=== PATIENT | male | born 1955 | race Caucasian/White ===

== ENCOUNTER 2025-05-01 10:50 | Inpatient (IN) | payer MEDICARE, OTHER ==
[2025-05-01 11:58] LABS: Basophils # (A) 0.01 10*3/uL (0.00-0.10); Basophils % (A) 0.1 %; Eosinophils # (A) 0.02 10*3/uL (0.04-0.35); Eosinophils % (A) 0.3 %; HCT 35.5 % (39.6-50.0); HGB 11.9 g/dL (13.0-17.0); Lymphocytes # (A) 0.85 10*3/uL (0.90-5.00); Lymphocytes % (A) 12.5 %; MCH 31.5 pg (27.0-32.0); MCHC 33.5 g/dL (32.0-37.0); MCV 93.9 fL (80.0-97.0); Monocytes # (A) 0.84 10*3/uL (0.20-1.00); Monocytes % (A) 12.3 %; Neutrophils # (A) 5.06 10*3/uL (1.80-7.70); Neutrophils % (A) 74.4 %; Platelet Count 272 10*3/uL (140-440); RBC 3.78 10*6/uL (4.40-5.60); RDW 14.8 % (11.5-14.5); WBC 6.81 10*3/uL (4.50-10.00)
[2025-05-01 12:03] LABS: ALT 25 U/L (4-49); African American GFR (CKD) >90 (>60 ml/min/1.73 sqM); Albumin 3.9 g/dL (3.5-5.0); Amylase 37 U/L (30-110); Anion Gap 13 mmol/L; Blood Urea Nitrogen 11 mg/dL (9-20); Calcium 9.1 mg/dL (8.4-10.2); Carbon Dioxide 23 mmol/L (22-30); Chloride 100 mmol/L (98-107); Glucose 102 mg/dL (74-99); Lipase 201 U/L (23-300); Non-African American GFR(CKD) >90 (>60 ml/min/1.73 sqM); Sodium 136 mmol/L (137-145); Total Protein 7.1 g/dL (6.3-8.2)
[2025-05-01 12:05] LABS: AST 30 U/L (17-59); Alkaline Phosphatase 70 U/L (38-126); Potassium 5.0 mmol/L (3.5-5.1)
--- NOTE | 2025-05-01 12:15 | ED ---
General Adult HPI - General Chief complaint: Abdominal Pain Stated complaint: Abd Pain Time Seen by Provider: 05/01/25 11:32 Source: patient, RN notes reviewed Mode of arrival: ambulatory Limitations: no limitations - History of Present Illness Initial comments: This is a 69-year-old male with a history of diverticulitis and diverticulosis, hypertension and hyperlipidemia presenting to the emergency department for complaints of left lower quadrant abdominal pain that has been worsening over the past 5 days. He states that the pain waxes and wanes and is associated after he eats food. He denies radiation of pain. He denies associated nausea, vomiting, diaphoresis, fevers, diarrhea. States he has been mildly constipated this week with his last bowel movement was this morning with no evidence of hematochezia or melena. Denies urinary complaints. Previous umbilical hernia repair. Patient is from out of town and vacations in the [place] in [place] and does not have a primary care provider in this area. - Related Data Home Medications Medication Instructions Recorded Confirmed Celecoxib [CeleBREX] 200 mg PO BID 05/01/25 05/01/25 Ergocalciferol [Vitamin D2 (1250 1,250 mcg PO DIRECTED 05/01/25 05/01/25 Mcg = 13028 Iu)] Irbesartan 300 mg PO HS 05/01/25 05/01/25 Pioglitazone [Actos] 15 mg PO DAILY 05/01/25 05/01/25 Semaglutide [Ozempic] 1 mg SQ DIRECTED 05/01/25 05/01/25 Simvastatin [Zocor] 20 mg PO DAILY 05/01/25 05/01/25 Allergies Allergy/AdvReac Type Severity Reaction Status Date / Time No Known Allergies Allergy Verified 05/01/25 15:34 Review of Systems ROS Statement: Those systems with pertinent positive or pertinent negative responses have been documented in the HPI. ROS Other: All systems not noted in ROS Statement are negative. Past Medical History Past Medical History: Hyperlipidemia, Hypertension Additional Past Medical History / Comment(s): Diverticulitis, "borderline diabet ic" Past Surgical History: Back Surgery, Hernia Repair, Joint Replacement Smoking Status: Never smoker Past Alcohol Use History: Abuse Past Drug Use History: None Reported General Exam Limitations: no limitations Neck exam: Present: normal inspection. Absent: tenderness, meningismus, lymphadenopathy Respiratory exam: Present: normal lung sounds bilaterally. Absent: respiratory distress, wheezes, rales, rhonchi, stridor Cardiovascular Exam: Present: regular rate, normal rhythm, normal heart sounds. Absent: systolic murmur, diastolic murmur, rubs, gallop, clicks GI/Abdominal exam: Present: soft, tenderness (LLQ). Absent: distended, guarding, rebound Extremities exam: Present: normal inspection, full ROM, normal capillary refill. Absent: tenderness, pedal edema, joint swelling, calf tenderness Back exam: Present: normal inspection. Absent: CVA tenderness (R), CVA tenderness (L) Course Vital Signs 05/01/25 05/01/25 05/01/25 11:00 12:00 14:30 Temperature 97.9 F Pulse Rate 69 65 66 Respiratory 18 18 16 Rate Blood Pressure 145/82 145/65 139/67 O2 Sat by Pulse 100 100 99 Oximetry Medical Decision Making - Medical Decision Making Was pt. sent in by a medical professional or institution (, PA, LEAVE SPECIALIST, urgent care, hospital, or alf...) When possible be specific @ -No Did you speak to anyone other than the patient for history (EMS, parent, family, police, friend...)? What history was obtained from this source @ -No Did you review nursing and triage notes (agree or disagree)? Why? @ -I reviewed and agree with nursing and triage notes Were old charts reviewed (outside hosp., previous admission, EMS record, old EKG, old radiological studies, urgent care reports/EKG's, alf records)? Report findings @ -No old charts were reviewed Differential Diagnosis (chest pain, altered mental status, abdominal pain women, abdominal pain men, vaginal bleeding, weakness, fever, dyspnea, syncope, headache, dizziness, GI bleed, back pain, seizure, CVA, palpatations, mental health, musculoskeletal)? @ -Differential Abdominal Pain Men: Appendicitis, cholecystitis, diverticulosis, ischemic bowel, pancreatitis, hepatitis, UTI, gastroenteritis, AAA, incarcerated hernia, bowel obstruction, constipation, inflammatory bowel, hepatitis, peptic ulcer disease, splenic infarction, perforated viscus, testicular torsion, this is not meant to be an all-inclusive list EKG interpreted by me (3pts min.). @ -None X-rays interpreted by me (1pt min.). @ -None done CT interpreted by me (1pt min.). @ -CT imaging of the abdomen pelvis with IV contrast reveals a complicated acute diverticulitis of the descending colon with adjacent 5.9 cm abscess within the left pericolic gutter abutting the abdominal wall with edema/stranding involving the left lateral abdominal wall subcutaneous tissue U/S interpreted by me (1pt. min.). @ -None done What testing was considered but not performed or refused? (CT, X-rays, U/S, labs)? Why? @ -None What meds were considered but not given or refused? Why? @ -None Did you discuss the management of the patient with other professionals (professionals i.e. Dr., PA, LEAVE SPECIALIST, lab, RT, psych nurse, social human services assistants, corporate traffic manager, teacher, regulatory compliance officer, geriatric case manager)? Give summary @ -I personally spoke with Dr. Gonzalez, on-call surgeon, who spoke with the patient and recommended admission. He recommend that the patient be n.p.o. and to continue on Flagyl and Rocephin and to consult interventional radiology. I spoke with Dr. park, who has agreed to admit the patient with general surgery and interventional radiology on consult. Was smoking cessation discussed for >3mins.? @ -No Was critical care preformed (if so, how long)? @ -No Were there social determinants of health that impacted care today? How? (Homelessness, low income, unemployed, alcoholism, drug addiction, transportation, low edu. Level, literacy, decrease access to med. care, fci, rehab)? @ -No Was there de-escalation of care discussed even if they declined (Discuss DNR or withdrawal of care, Hospice)? DNR status @ -No What co-morbidities impacted this encounter? (DM, HTN, Smoking, COPD, CAD, Cancer, CVA, ARF, Chemo, Hep., AIDS, mental health diagnosis, sleep apnea, morbid obesity)? @ -None Was patient admitted / discharged? Hospital course, mention meds given and route, prescriptions, significant lab abnormalities, going to OR and other pertinent info. @ -Admitted. 69-year-old male presenting to the emergency room complaints of left lower quadrant abdominal pain. Triage orders are placed before my ev aluation of the patient. On my evaluation patient's vitals are stable and he is resting comfortably in the examination bed in no signs of distress. Patient's pain is reproducible in the left lower quadrant. There are equal bowel sounds auscultated throughout all quadrants. He was offered pain medication however is declined. Laboratory testing reveals no signs of leukocytosis, lactic acid not elevated at 0.7. Urinalysis reveals no signs of infection. I was informed by the on-call radiologist with concern for a complicated acute diverticulitis of the descending colon with adjacent 5.9 cm abscess within the left pericolic gutter at 1:07 PM. General surgeon, Dr. Pearson, recommends that patient continue on antibiotics, be placed on n.p.o. status, and consult interventional radiology. Patient is admitted to Dr. Park. Case discussed with my attending Dr. Blake Undiagnosed new problem with uncertain prognosis? @ -No Drug Therapy requiring intensive monitoring for toxicity (Heparin, Nitro, Insulin, Cardizem)? @ -No Were any procedures done? @ -No Diagnosis/symptom? @ -Complicated diverticulitis with abscess Acute, or Chronic, or Acute on Chronic? @ -Acute Uncomplicated (without systemic symptoms) or Complicated (systemic symptoms)? @ -Complicated Side effects of treatment? @ -No Exacerbation, Progression, or Severe Exacerbation? @ -No Poses a threat to life or bodily function? How? (Chest pain, USA, VT, pneumonia, PE, COPD, DKA, ARF, appy, cholecystitis, CVA, Diverticulitis, Homicidal, Suicidal, threat to staff... and all critical care pts) @ -No - Lab Data Result diagrams: 05/01/25 11:13 05/01/25 11:13 Lab Results 05/01/25 05/01/25 05/01/25 Range/Units 11:13 11:13 12:13 WBC 6.81 (4.50-10.00) 10*3/uL RBC 3.78 L (4.40-5.60) 10*6/uL Hgb 11.9 L (13.0-17.0) g/dL Hct 35.5 L (39.6-50.0) % MCV 93.9 (80.0-97.0) fL MCH 31.5 (27.0-32.0) pg MCHC 33.5 (32.0-37.0) g/dL Plt Count 272 (140-440) 10*3/uL MPV 8.7 L (9.5-12.2) fL Immature Gran % (Auto) 0.4 % Neutrophils % 74.4 % Lymphocytes % 12.5 % Monocytes % 12.3 % Eosinophils % 0.3 % Basophils % 0.1 % Immature Gran # 0.03 (0.00-0.04) 10*3/uL Neutrophils # 5.06 (1.80-7.70) 10*3/uL Lymphocytes # 0.85 L (0.90-5.00) 10*3/uL Monocytes # 0.84 (0.20-1.00) 10*3/uL Eosinophils # 0.02 L (0.04-0.35) 10*3/uL Basophils # 0.01 (0.00-0.10) 10*3/uL Sodium 136 L (137-145) mmol/L Potassium 5.0 (3.5-5.1) mmol/L Chloride 100 (98-107) mmol/L Carbon Dioxide 23 (22-30) mmol/L Anion Gap 13 mmol/L BUN 11 (9-20) mg/dL Creatinine 0.67 (0.66-1.25) mg/dL Est GFR (CKD-EPI)AfAm >90 (>60 ml/min/1.73 sqM) Est GFR (CKD-EPI)NonAf >90 (>60 ml/min/1.73 sqM) Glucose 102 H (74-99) mg/dL Plasma Lactic Acid Rohan (0.7-2.0) mmol/L Calcium 9.1 (8.4-10.2) mg/dL Total Bilirubin 1.4 H (0.2-1.3) mg/dL AST 30 (17-59) U/L ALT 25 (4-49) U/L Alkaline Phosphatase 70 (38-126) U/L Total Protein 7.1 (6.3-8.2) g/dL Albumin 3.9 (3.5-5.0) g/dL Amylase 37 (30-110) U/L Lipase 201 (23-300) U/L Urine Color Yellow Urine Appearance Clear (Clear) Urine pH 6.0 (5.0-8.0) Ur Specific [place] 1.021 (1.001-1.035) Urine Protein 1+ H (Negative) Urine Glucose (UA) Negative (Negative) Urine Ketones 1+ H (Negative) Urine Blood Trace H (Negative) Urine Nitrite Negative (Negative) Urine Bilirubin Negative (Negative) Urine Urobilinogen 2.0 (<2.0) mg/dL Ur Leukocyte Esterase Negative (Negative) Urine RBC 2 (0-5) /hpf Urine WBC 1 (0-5) /hpf Urine Mucus Few H (None) /hpf 05/01/25 Range/Units 14:26 WBC (4.50-10.00) 10*3/uL RBC (4.40-5.60) 10*6/uL Hgb (13.0-17.0) g/dL Hct (39.6-50.0) % MCV (80.0-97.0) fL MCH (27.0-32.0) pg MCHC (32.0-37.0) g/dL Plt Count (140-440) 10*3/uL MPV (9.5-12.2) fL Immature Gran % (Auto) % Neutrophils % % Lymphocytes % % Monocytes % % Eosinophils % % Basophils % % Immature Gran # (0.00-0.04) 10*3/uL Neutrophils # (1.80-7.70) 10*3/uL Lymphocytes # (0.90-5.00) 10*3/uL Monocytes # (0.20-1.00) 10*3/uL Eosinophils # (0.04-0.35) 10*3/uL Basophils # (0.00-0.10) 10*3/uL Sodium (137-145) mmol/L Potassium (3.5-5.1) mmol/L Chloride (98-107) mmol/L Carbon Dioxide (22-30) mmol/L Anion Gap mmol/L BUN (9-20) mg/dL Creatinine (0.66-1.25) mg/dL Est GFR (CKD-EPI)AfAm (>60 ml/min/1.73 sqM) Est GFR (CKD-EPI)NonAf (>60 ml/min/1.73 sqM) Glucose (74-99) mg/dL Plasma Lactic Acid Rohan 0.7 (0.7-2.0) mmol/L Calcium (8.4-10.2) mg/dL Total Bilirubin (0.2-1.3) mg/dL AST (17-59) U/L ALT (4-49) U/L Alkaline Phosphatase (38-126) U/L Total Protein (6.3-8.2) g/dL Albumin (3.5-5.0) g/dL Amylase (30-110) U/L Lipase (23-300) U/L Urine Color Urine Appearance (Clear) Urine pH (5.0-8.0) Ur Specific [place] (1.001-1.035) Urine Protein (Negative) Urine Glucose (UA) (Negative) Urine Ketones (Negative) Urine Blood (Negative) Urine Nitrite (Negative) Urine Bilirubin (Negative) Urine Urobilinogen (<2.0) mg/dL Ur Leukocyte Esterase (Negative) Urine RBC (0-5) /hpf Urine WBC (0-5) /hpf Urine Mucus (None) /hpf Disposition Clinical Impression: Diverticulitis of intestine with abscess Disposition: ADMITTED IP TO THIS [facility] Condition: Serious Decision to Admit Reason: Admit from EC Decision Date: 05/01/25 Decision Time: 16:15
[2025-05-01 12:25] LABS: Bilirubin,Urine Negative (Negative); Blood,Urine Trace (Negative); Color,Urine Yellow; Glucose,Urine (UA) Negative (Negative); Ketones,Urine 1+ (Negative); Leukocyte Esterase,Urine Negative (Negative); Mucus,Urine Few /hpf; Nitrite,Urine Negative (Negative); PH, Urine 6.0 (5.0-8.0); Protein,Urine 1+ (Negative); RBC,Urine 2 /hpf (0-5); Specific Gravity,Urine 1.021 (1.001-1.035); Urobilinogen,Urine 2.0 mg/dL (<2.0); WBC,Urine 1 /hpf (0-5)
--- NOTE | 2025-05-01 13:10 | CT ---
EXAMINATION TYPE: CT abdomen pelvis w con CT DLP: 1745.8 mGycm, Automated exposure control for dose reduction was used. DATE OF EXAM: 05/01/2025 12:44 PM COMPARISON: CT abdomen pelvis most recent from . CLINICAL INDICATION:Male, 69 years old with history of LLQ pain, hx diverticulitis; Pt to ED for abdo kelley pain. Hx diverticulitis. Reports this is more painful than last time. Denies n/v/d. TECHNIQUE: Standard CT of the abdomen and pelvis following the administration of 100 cc of Isovue 3 00 IV contrast material. Coronal and sagittal reformats were performed. FINDINGS: LOWER CHEST: Posterior left lung fat filled Bochdalek hernia. The visualized lungs are otherwise josselyn r. Prominent heart size. ABDOMEN LIVER: Unremarkable GALLBLADDER AND BILE DUCTS: Unremarkable. PANCREAS: Unremarkable. SPLEEN: Unremarkable. ADRENAL GLANDS: Unremarkable. KIDNEYS AND URETERS: No evidence of hydronephrosis or renal calculus. 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 Exophytic right renal lower pole 2.9 cm simple cyst. Addition al right renal upper pole exophytic 3.3 cm cyst. Couple of subcentimeter bilateral cortical hypodensi ties likely representing cysts. No follow-up recommended. Left renal lower pole 1.7 cm fat-containing lesion consistent with an angiomyolipoma. PELVIS BLADDER: Underdistended with wall thickening likely related to underdistention. No significant surrou nding fat stranding. REPRODUCTIVE: Unremarkable. ABDOMEN & PELVIS STOMACH AND BOWEL: Small hiatal hernia. Small periampullary duodenal diverticulum.Circumferential wal l thickening with diverticula involving the descending colon. There is surrounding fascial wall thick ening with a rim-enhancing fluid collection laterally along the left lateral abdominal wall. There is gas and fluid identified within this collection. Measures approximately 5.7 x 2.8 x 5.9 cm in AP, TV , CC dimensions. No evidence of bowel obstruction. PERITONEUM: No evidence of pneumoperitoneum or free fluid. VASCULATURE: Mild atherosclerotic calcifications are present throughout the abdominal aorta and its b ranches. No evidence of aortic aneurysm. MUSCULOSKELETAL: No acute osseous abnormalities. Bilateral SI joint degenerative changes with anterio r bridging. Postsurgical changes with bilateral pedicular screws and rods involving L4-S1. Associated laminectomy changes. Multilevel degenerative changes of the spine. Multilevel anterior osteophytosis . Grade 1 retrolisthesis of L3 on L4. LYMPH NODES: No evidence for lymphadenopathy. SOFT TISSUE/ABDOMINAL WALL: Left lateral abdominal wall subcutaneous edema. IMPRESSION: 1. Complicated acute diverticulitis of the descending colon with adjacent 5.9 cm abscess within the left paracolic gutter abutting the abdominal wall. There is edema/stranding involving the left latera l abdominal wall subcutaneous tissues. 2. 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 3. 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 Findings communicated to Dr. Lo Hinojosa, PAC on 05/01/2025 1:[address] Gregg Portillo . [facility], , 05/01/2025 1:07 PM
[2025-05-01] MEDS: metroNIDAZOLE-NS PMX 500 MG in SALINE 1 100ML.BAG IVPB SCH (15:09)
[2025-05-01] MEDS ORDERED: NALOXONE 0.4 MG/ML 1 ML VIAL IV PRN (16:17)
[2025-05-01] MEDS ORDERED: MORPHINE SULFATE 4 MG/ML SYRINGE IV PRN (16:17)
[2025-05-01] MEDS: SODIUM CHLORIDE 0.9% 1,000 ML IV SCH (17:04)
--- NOTE | 2025-05-01 20:58 | P.GSCN ---
History of Present Illness History of present illness: This is a 69-year-old male with a history of diverticulitis and diverticulosis, hypertension and hyperlipidemia presenting to the emergency department for complaints of left lower quadrant abdominal pain that has been worsening over the past 5 days. He states that the pain waxes and wanes and is associated after he eats food. He denies radiation of pain. He denies associated nausea, vomiting, diaphoresis, fevers, diarrhea. States he has been mildly constipated this week with his last bowel movement was this morning with no evidence of hematochezia or melena. Denies urinary complaints. Previous umbilical hernia repair. Patient is from out of town and vacations in [place] in [place] and does not have a primary care provider in this area. Review of Systems - Constitutional Reports as per HPI Past Medical History Past Medical History: Hyperlipidemia, Hypertension Additional Past Medical History / Comment(s): Diverticulitis, "borderline diabetic" History of Any Multi-Drug Resistant Organisms: None Reported Past Surgical History: Back Surgery, Hernia Repair, Joint Replacement Additional Past Surgical History / Comment(s): Bilateral Knee replaceds Smoking Status: Never smoker Past Alcohol Use History: Abuse Past Drug Use History: None Reported Medications and Allergies Home Medications Medication Instructions Recorded Confirmed Type Celecoxib [CeleBREX] 200 mg PO BID 05/01/25 05/01/25 History Ergocalciferol [Vitamin D2 (1250 1,250 mcg PO DIRECTED 05/01/25 05/01/25 History Mcg = 11000 Iu)] Irbesartan 300 mg PO HS 05/01/25 05/01/25 History Pioglitazone [Actos] 15 mg PO DAILY 05/01/25 05/01/25 History Semaglutide [Ozempic] 1 mg SQ DIRECTED 05/01/25 05/01/25 History Simvastatin [Zocor] 20 mg PO DAILY 05/01/25 05/01/25 History Allergies Allergy/AdvReac Type Severity Reaction Status Date / Time No Known Allergies Allergy Verified 05/01/25 15:34 Surgical - Exam Osteopathic Statement: *. No significant issues noted on an osteopathic stru ctural exam other than those noted in the History and Physical/Consult. Vital Signs Temp Pulse Resp BP Pulse Ox 97.9 F 69 18 145/82 100 05/01/25 11:00 05/01/25 11:00 05/01/25 11:00 05/01/25 11:00 05/01/25 11:00 General No acute distress alert and oriented x 3 Cardiovascular regular rhythm Pulmonary Breathing Abdomen is soft, tender to palpation the left lower quadrant no guarding rebound tenderness Results - Labs 05/01/25 11:13 05/01/25 11:13 Abnormal Lab Results - Last 24 Hours (Table) 05/01/25 05/01/25 05/01/25 Range/Units 11:13 11:13 12:13 RBC 3.78 L (4.40-5.60) 10*6/uL Hgb 11.9 L (13.0-17.0) g/dL Hct 35.5 L (39.6-50.0) % MPV 8.7 L (9.5-12.2) fL Lymphocytes # 0.85 L (0.90-5.00) 10*3/uL Eosinophils # 0.02 L (0.04-0.35) 10*3/uL Sodium 136 L (137-145) mmol/L Glucose 102 H (74-99) mg/dL Total Bilirubin 1.4 H (0.2-1.3) mg/dL Urine Protein 1+ H (Negative) Urine Ketones 1+ H (Negative) Urine Blood Trace H (Negative) Urine Mucus Few H (None) /hpf Diabetes panel 05/01/25 Range/Units 11:13 Sodium 136 L (137-145) mmol/L Potassium 5.0 (3.5-5.1) mmol/L Chloride 100 (98-107) mmol/L Carbon Dioxide 23 (22-30) mmol/L BUN 11 (9-20) mg/dL Creatinine 0.67 (0.66-1.25) mg/dL Glucose 102 H (74-99) mg/dL Calcium 9.1 (8.4-10.2) mg/dL AST 30 (17-59) U/L ALT 25 (4-49) U/L Alkaline Phosphatase 70 (38-126) U/L Total Protein 7.1 (6.3-8.2) g/dL Albumin 3.9 (3.5-5.0) g/dL Calcium panel 05/01/25 Range/Units 11:13 Calcium 9.1 (8.4-10.2) mg/dL Albumin 3.9 (3.5-5.0) g/dL Pituitary panel 05/01/25 Range/Units 11:13 Sodium 136 L (137-145) mmol/L Potassium 5.0 (3.5-5.1) mmol/L Chloride 100 (98-107) mmol/L Carbon Dioxide 23 (22-30) mmol/L BUN 11 (9-20) mg/dL Creatinine 0.67 (0.66-1.25) mg/dL Glucose 102 H (74-99) mg/dL Calcium 9.1 (8.4-10.2) mg/dL Adrenal panel 05/01/25 Range/Units 11:13 Sodium 136 L (137-145) mmol/L Potassium 5.0 (3.5-5.1) mmol/L Chloride 100 (98-107) mmol/L Carbon Dioxide 23 (22-30) mmol/L BUN 11 (9-20) mg/dL Creatinine 0.67 (0.66-1.25) mg/dL Glucose 102 H (74-99) mg/dL Calcium 9.1 (8.4-10.2) mg/dL Total Bilirubin 1.4 H (0.2-1.3) mg/dL AST 30 (17-59) U/L ALT 25 (4-49) U/L Alkaline Phosphatase 70 (38-126) U/L Total Protein 7.1 (6.3-8.2) g/dL Albumin 3.9 (3.5-5.0) g/dL Assessment and Plan Assessment: 69-year-old male with complicated diverticulitis and pelvic abscess Recommend IR consult Tay Llanos N.p.o. IV fluids had an extensive discussion with patient regarding recommended hospital course after IR drainage and IV antibiotics patient will need a colonos copy in 6 to 8 weeks and talk about possible elective sigmoidectomy Time with Patient: Greater than 30
--- NOTE | 2025-05-02 02:08 | HP ---
HISTORY AND PHYSICAL HISTORY OF PRESENT ILLNESS: A 69-year-old right-hand male, history of diverticulitis, diverticulosis, hypertension, dyslipidemia, question of left lower quadrant pain over the last 5 days. Denies nausea, vomiting, diaphoresis, fever, diarrhea previous umbilical hernia repair. No urinary complaints. PAST MEDICAL HISTORY: Hypertension, dyslipidemia, borderline diabetic, diverticulitis. PAST SURGICAL HISTORY: Back surgery, hernia repair, joint replacement, bilateral knee replacement, chronic alcohol abuse. HOME MEDICINES: 1. Vitamin D. 2. Irbesartan 300 daily. 3. Actos 15 daily. 4. Ozempic 1 mg weekly. 5. Zocor 20 daily. ALLERGIES: Negative. PHYSICAL EXAMINATION: VITAL SIGNS: Temperature 97.9, pulse 69, respiratory rate 16-18, and blood pressure 145/82 to 100. CARDIOVASCULAR: S1-S2. LUNGS: breathing, scattered wheeze. ABDOMEN: With left lower quadrant guarding. No rebound. LABORATORY DATA: White count is normal. Hemoglobin 7.9. Sodium 136, total bilirubin 1.4, potassium 5.1. ASSESSMENT AND PLAN: Left lower quadrant abdominal pain, complicated diverticulitis, pelvic abscess 5 cm. IR consult. Tay Llanos, n.p.o. with IR drains. IV antibiotics will be needed and a colonoscopy in 4-[address] after antibiotics are over the PICC line. Prognosis guarded. MONA / ADRIENNE: [id number] /
[2025-05-02 07:52] LABS: Basophils # (A) 0.03 X 10*3/uL (0.00-0.10); Basophils % (A) 0.4 %; Eosinophils # (A) 0.06 X 10*3/uL (0.04-0.35); Eosinophils % (A) 0.8 %; HCT 33.8 % (39.6-50.0); HGB 10.7 g/dL (13.0-17.0); Immature Grans, Automated 0.40 %; Lymphocytes # (A) 0.98 X 10*3/uL (0.90-5.00); Lymphocytes % (A) 12.7 %; MCH 30.4 pg (27.0-32.0); MCHC 31.7 g/dL (32.0-37.0); MCV 96.0 FL (80.0-97.0); Monocytes # (A) 0.98 X 10*3/uL (0.20-1.00); Monocytes % (A) 12.7 %; NRBC Per 100 WBC 0 X 10*3/uL (0.00-0.01); Neutrophils # (A) 5.61 X 10*3/uL (1.80-7.70); Neutrophils % (A) 73.0 %; Platelet Count 320 X 10*3/uL (140-440); RBC 3.52 X 10*6/uL (4.40-5.60); RDW 15.0 % (11.5-14.5); WBC 7.69 X 10*3/uL (4.50-10.00)
[2025-05-02 08:00] LABS: Anion Gap 13.40 mmol/L (4.00-12.00); BUN/Creat Ratio 12.57 Ratio (12.00-20.00); Blood Urea Nitrogen 8.8 mg/dL (9.0-27.0); Carbon Dioxide 22.6 mmol/L (21.6-31.8); Chloride 100 mmol/L (96-109); Glucose 88 mg/dL (70-110); Potassium 4.5 mmol/L (3.5-5.5); Sodium 136 mmol/L (135-145)
[2025-05-02 08:01] LABS: ALT 18 U/L (10-49); AST 13 U/L (14-35); Albumin 3.5 g/dL (3.8-4.9); Albumin/Globulin Ratio 1.40 Ratio (1.60-3.17); Alkaline Phosphatase 71 U/L (41-126); Calcium 8.7 mg/dL (8.7-10.3); Globulin 2.5 g/dL (1.6-3.3); Total Protein 6.0 g/dL (6.2-8.2)
[2025-05-02] MEDS: ATORVASTATIN 10 MG TAB PO SCH (08:49)
[2025-05-02] MEDS: PIOGLITAZONE 15 MG TAB PO SCH (08:54)
[2025-05-02 08:55] LABS: Glucose,Whole Blood 85 mg/dL (70-110)
[2025-05-02] MEDS: ACETAMINOPHEN TAB 325 MG TAB PO PRN (11:08)
--- NOTE | 2025-05-02 11:26 | P.PN ---
Subjective Progress Note Date: 05/02/25 SURGICAL PROGRESS NOTE CHIEF COMPLAINT: Diverticulitis with abscess HISTORY OF PRESENT ILLNESS: Patient reports some improvement in his left lower quadrant abdominal pain he denies any nausea or vomiting. He is to be evaluated by IR service for possible drain placement. WBC is 7.69. He had complained of a headache earlier today. PHYSICAL EXAM: VITAL SIGNS: Reviewed. GENERAL: Well-developed in no acute distress. HEENT: No sclera icterus. Extraocular movements grossly intact. Moist buccal mucosa. Head is atraumatic, normocephalic. ABDOMEN: Soft. Nondistended. Tenderness with palpation left lower quadrant. No guarding or rebound tenderness NEUROLOGIC: Alert and oriented. Cranial nerves II through XII grossly intact. ASSESSMENT: 1. Diverticulitis with pelvic abscess PLAN: - Patient to be evaluated by IR service for possible drain placement - Continue IV antibiotics - Keep patient n.p.o. - Tylenol added for headache - Patient will need colonoscopy in 6 to 8 weeks and discussion about possible elective sigmoidectomy Physician Refueling Ramp Supervisor note has been reviewed by physician. Signing provider agrees with the documented findings, assessment, and plan of care. Objective - Vital Signs Vital signs: Vital Signs Temp 98.5 F 05/02/25 07:11 Pulse 66 05/02/25 07:11 Resp 18 05/02/25 07:11 BP 109/67 05/02/25 07:11 Pulse Ox 99 05/02/25 07:11 FiO2 Intake & Output 05/01/25 05/02/25 05/02/25 18:59 06:59 18:59 Weight 107.955 kg Other: Voiding Method Toilet # Voids 2 - Labs CBC & Chem 7: 05/02/25 04:36 05/02/25 04:36 Labs: Abnormal Lab Results - Last 24 Hours (Table) 05/01/25 05/01/25 05/01/25 Range/Units 11:13 11:13 12:13 RBC 3.78 L (4.40-5.60) 10*6/uL Hgb 11.9 L (13.0-17.0) g/dL Hct 35.5 L (39.6-50.0) % MCHC (32.0-37.0) g/dL RDW (11.5-14.5) % MPV 8.7 L (9.5-12.2) fL Lymphocytes # 0.85 L (0.90-5.00) 10*3/uL Eosinophils # 0.02 L (0.04-0.35) 10*3/uL Sodium 136 L (137-145) mmol/L Anion Gap (4.00-12.00) mmol/L BUN (9.0-27.0) mg/dL Glucose 102 H (74-99) mg/dL Total Bilirubin 1.4 H (0.2-1.3) mg/dL AST (14-35) U/L Total Protein (6.2-8.2) g/dL Albumin (3.8-4.9) g/dL Albumin/Globulin Ratio (1.60-3.17) Ratio Urine Protein 1+ H (Negative) Urine Ketones 1+ H (Negative) Urine Blood Trace H (Negative) Urine Mucus Few H (None) /hpf 05/02/25 05/02/25 Range/Units 04:36 04:36 RBC 3.52 L (4.40-5.60) 10*6/uL Hgb 10.7 L (13.0-17.0) g/dL Hct 33.8 L (39.6-50.0) % MCHC 31.7 L (32.0-37.0) g/dL RDW 15.0 H (11.5-14.5) % MPV (9.5-12.2) fL Lymphocytes # (0.90-5.00) 10*3/uL Eosinophils # (0.04-0.35) 10*3/uL Sodium (137-145) mmol/L Anion Gap 13.40 H (4.00-12.00) mmol/L BUN 8.8 L (9.0-27.0) mg/dL Glucose (74-99) mg/dL Total Bilirubin (0.2-1.3) mg/dL AST 13 L (14-35) U/L Total Protein 6.0 L (6.2-8.2) g/dL Albumin 3.5 L (3.8-4.9) g/dL Albumin/Globulin Ratio 1.40 L (1.60-3.17) Ratio Urine Protein (Negative) Urine Ketones (Negative) Urine Blood (Negative) Urine Mucus (None) /hpf
[2025-05-02 14:02] LABS: INR 1.0 (<1.2); Prothrombin Time 11.1 sec (10.0-12.5)
[2025-05-02] MEDS: HYDROmorphone 0.5 MG/0.5 ML SYRINGE IVP STA (14:21)
[2025-05-02] MEDS: PIPERACILLIN-TAZOBACTAM 3.375 GM in SODIUM CHLORIDE 0.9% 100 ML IVPB SCH (16:03)
--- NOTE | 2025-05-02 20:07 | CT ---
EXAMINATION TYPE: CT guided abscess drainage DATE OF EXAM: 05/02/2025 3:34 PM COMPARISON: Prior CT/US. CLINICAL INDICATION:Male, 69 years old with history of abscess; left side abscess, [facility] TECHNIQUE: CT-guided abscess drainage with pigtail catheter placement. CT DLP: 826 mGycm, Automated exposure control for dose reduction was used. Contrast used: mL of , none Oral contrast used: none ATTENDING: Dougie Benjamin D.O. PROCEDURE: Informed consent was obtained. DLP administered was [address] localizer images were taken which showed safest allowable access to the fluid collection. The patient left lower abdominal fluid collection was prepped, draped in the usual sterile fashion, and locally anesthetized. A 10 [place] drainage catheter was inserted via trocar technique with return of purulent fluid. Approximately 25 mL of purulent was drained and sent to the lab for analysis. There was no blood los s and post-procedure hemostasis was achieved. The patient tolerated the procedure well without compl ication. Patient was transferred to the general medical floor in stable condition. IMPRESSION: CT guided placement of a percutaneous pigtail drainage catheter which was left in place. [facility], , 05/02/2025 8:05 PM
[2025-05-02] MEDS: LOSARTAN 50 MG TAB PO SCH (20:22)
--- NOTE | 2025-05-02 22:40 | P.CONS ---
History of Present Illness - Reason for Consult Consult date: 05/02/25 Antibiotic recommendation Requesting physician: Aziza Jean - Chief Complaint Abdominal pain x 5 days - History of Present Illness Patient is a 69-year-old male with a past medical history significant for hypertension hyperlipidemia did have a previous 2 episode of diverticulitis about 4 and 5 years ago presenting to the hospital for evaluation of left lower quadrant abdominal pain that apparently was getting worse for 5 days before presentation to the hospital patient pain has been waxing and waning especially worse with eating the food patient describes the pain to be moderate intensity without any radiation denies any associate nausea vomiting diarrhea or constipation or any high-grade fever on presentation to the hospital patient was afebrile and no fever Count subsequently patient was not tachycardic hypotensive or hypoxic patient did have a white count of 7.69 creatinine 0.7 electrolytes are normal liver enzymes are normal urine has been negative patient did have a CT abdominal pelvis which was complicated acute diverticulitis of the descending colon with adjacent 5.9 cm abscess within the left paracolic gutter patient was started on Rocephin and Flagyl patient has been evaluated by IR and is status post drainage of the sepsis infectious disease was consulted for further management of antibiotic therapy Review of Systems Positive point and negatives has been mentioned in the HPI, complete review of systems was performed and all other systems are negative Past Medical History Past Medical History: Hyperlipidemia, Hypertension Additional Past Medical History / Comment(s): Diverticulitis, "borderline diabetic" History of Any Multi-Drug Resistant Organisms: None Reported Past Surgical History: Back Surgery, Hernia Repair, Joint Replacement Additional Past Surgical History / Comment(s): Bilateral Knee replaceds Smoking Status: Never smoker Past Alcohol Use History: Abuse Past Drug Use History: None Reported Medications and Allergies Home Medications Medication Instructions Recorded Confirmed Type Celecoxib [CeleBREX] 200 mg PO BID 05/01/25 05/01/25 History Ergocalciferol [Vitamin D2 (1250 1,250 mcg PO DIRECTED 05/01/25 05/01/25 History Mcg = 78160 Iu)] Irbesartan 300 mg PO HS 05/01/25 05/01/25 History Pioglitazone [Actos] 15 mg PO DAILY 05/01/25 05/01/25 History Semaglutide [Ozempic] 1 mg SQ DIRECTED 05/01/25 05/01/25 History Simvastatin [Zocor] 20 mg PO DAILY 05/01/25 05/01/25 History Allergies Allergy/AdvReac Type Severity Reaction Status Date / Time No Known Allergies Allergy Verified 05/01/25 15:34 Physical Exam Vitals: Vital Signs Temp Pulse Pulse Resp BP BP Pulse Ox 05/02/25 07:11 98.5 F 66 18 109/67 99 05/02/25 01:14 98.3 F 73 18 148/75 98 05/01/25 19:21 97.7 F 62 18 147/73 97 05/01/25 18:28 97.6 F 65 16 153/65 99 05/01/25 17:00 67 18 133/64 100 05/01/25 14:30 66 16 139/67 99 Intake and Output 05/01/25 05/02/25 05/02/25 22:59 06:59 14:59 Other: Voiding Method Toilet Toilet # Voids 2 Weight 107.955 kg GENERAL DESCRIPTION: Elderly male lying in bed, no distress. No tachypnea or accessory muscle of respiration use. HEENT: Shows Pallor , no scleral icterus. Oral mucous membrane is dry. NECK: Trachea central, no thyromegaly. LUNGS: Unlabored breathing. Clear to auscultation anteriorly. No wheeze or crackle. HEART: S1, S2, regular rate and rhythm. No loud murmur ABDOMEN: Soft, mild left-sided tenderness , no guarding or rigidity, EXTREMITIES: No edema of feet. SKIN: No rash, no masses palpable. NEUROLOGICAL: The patient is awake, alert, oriented x3, mood and affect normal. Results CBC & Chem 7: 05/02/25 04:36 05/02/25 04:36 Labs: Abnormal Lab Results - Last 24 Hours (Table) 05/02/25 05/02/25 Range/Units 04:36 04:36 RBC 3.52 L (4.40-5.60) X 10*6/uL Hgb 10.7 L (13.0-17.0) g/dL Hct 33.8 L (39.6-50.0) % MCHC 31.7 L (32.0-37.0) g/dL RDW 15.0 H (11.5-14.5) % Anion Gap 13.40 H (4.00-12.00) mmol/L BUN 8.8 L (9.0-27.0) mg/dL AST 13 L (14-35) U/L Total Protein 6.0 L (6.2-8.2) g/dL Albumin 3.5 L (3.8-4.9) g/dL Albumin/Globulin Ratio 1.40 L (1.60-3.17) Ratio Assessment and Plan (1) Diverticulitis of intestine with abscess Current Visit: Yes Status: Acute Code(s): K57.80 - DVTRCLI OF INTEST, PART UNSP, W PERF AND ABSCESS W/O BLEED SNOMED Code(s): 632201172 Plan: 1patient presented to hospital with abdominal pain and this patient has been diagnosed with a complicated diverticulitis with a peridiverticular abscess we will need to cover for the enteric gram-negative both aerobes and anaerobes status post IR drainage unfortunately no culture has been done 2-we will try to send the fluid from the drainage bag which may not be ideal but better than nothing 3-discontinue Rocephin and Flagyl 4-we will treat the patient with the Zosyn 3.375 g every 8 hours while waiting for the culture to finalize Patient and has multiple questions those has been answered in layman terms We will follow on clinical condition and cultures to further adjust medication if needed Thank you for this consultation we will follow the patient along with you Dictation was produced using [employer] dictation software. please excuse any grammatical, word or spelling errors. Time with Patient: Greater than 30
--- NOTE | 2025-05-03 01:15 | PN ---
PROGRESS NOTE SUBJECTIVE: White male, came with an abscess drainage. CT was placed in for drainage of the sigmoid abscess, which is improving. OBJECTIVE: CARDIOVASCULAR: S1, S2. LUNGS: Clear. GI: Shows a PEG tube. Purulent ALONDRA drainage coming out of the left lateral chest wall. ASSESSMENT AND PLAN: Abdominal abscess. Prognosis is guarded. Continue with broad-spectrum antibiotics. Wait for blood cultures to turn negative. Please see further orders. MMODL / IJN: [id number] /
[2025-05-03 07:58] LABS: Basophils # (A) 0.03 X 10*3/uL (0.00-0.10); Basophils % (A) 0.4 %; Eosinophils # (A) 0.06 X 10*3/uL (0.04-0.35); Eosinophils % (A) 0.9 %; HCT 34.2 % (39.6-50.0); HGB 12.0 g/dL (13.0-17.0); Immature Grans, Automated 0.40 %; Lymphocytes # (A) 0.98 X 10*3/uL (0.90-5.00); Lymphocytes % (A) 14.0 %; MCH 33.3 pg (27.0-32.0); MCHC 35.1 g/dL (32.0-37.0); MCV 95.0 FL (80.0-97.0); Monocytes # (A) 0.82 X 10*3/uL (0.20-1.00); Monocytes % (A) 11.7 %; NRBC Per 100 WBC 0 X 10*3/uL (0.00-0.01); Neutrophils # (A) 5.06 X 10*3/uL (1.80-7.70); Neutrophils % (A) 72.6 %; Platelet Count 339 X 10*3/uL (140-440); RBC 3.60 X 10*6/uL (4.40-5.60); RDW 14.9 % (11.5-14.5); WBC 6.98 X 10*3/uL (4.50-10.00)
[2025-05-03] MEDS: MELOXICAM 7.5 MG TAB PO SCH (08:11)
--- NOTE | 2025-05-03 12:40 | P.PN ---
Subjective Progress Note Date: 05/03/25 SURGICAL PROGRESS NOTE CHIEF COMPLAINT: Diverticulitis with abscess HISTORY OF PRESENT ILLNESS: Patient status post IR drain placement. Patient had 25 mL purulent output 1 drain was placed. Currently in the drainage tube is bloody output. Patient reports left lower quadrant abdominal pain has improved. He has pain just at the drain site. He is having flatus. No bowel movement. Denies any nausea or vomiting. Afebrile. WBC 6.98 Hgb 12.0. Fluid culture pending PHYSICAL EXAM: VITAL SIGNS: Reviewed. GENERAL: Well-developed in no acute distress. ABDOMEN: Soft. Nondistended. Mild tenderness at drain site. Dark bloody output noted in drain NEUROLOGIC: Alert and oriented. Cranial nerves II through XII grossly intact. ASSESSMENT: 1. Diverticulitis with pelvic abscess status post drain placement by IR service PLAN: -Continue IR drain -Continue antibiotics per ID service -Advance diet to full liquids -Patient will need colonoscopy in 6 to 8 weeks and discussion about possible el ective sigmoidectomy Physician Social Science Manager note has been reviewed by physician. Signing provider agrees with the documented findings, assessment, and plan of care. Objective - Vital Signs Vital signs: Vital Signs Temp 98.8 F 05/03/25 07:55 Pulse 68 05/03/25 08:00 Resp 19 05/03/25 08:00 BP 159/79 05/03/25 07:55 Pulse Ox 96 05/03/25 00:51 FiO2 Intake & Output 05/02/25 05/03/25 05/03/25 18:59 06:59 18:59 Intake Total 540 Output Total 40 Balance 540 -40 Intake: Oral 540 Output: Drainage 40 Left Abdomen 40 Other: Voiding Method Toilet Toilet Toilet # Voids 1 2 # Bowel Movements 1 - Labs CBC & Chem 7: 05/03/25 04:24 05/02/25 04:36 Labs: Abnormal Lab Results - Last 24 Hours (Table) 05/03/25 Range/Units 04:24 RBC 3.60 L (4.40-5.60) X 10*6/uL Hgb 12.0 L (13.0-17.0) g/dL Hct 34.2 L (39.6-50.0) % MCH 33.3 H (27.0-32.0) pg RDW 14.9 H (11.5-14.5) % Microbiology - Last 24 Hours (Table) 05/01/25 14:26 Blood Culture - Preliminary Blood
--- NOTE | 2025-05-03 15:23 | P.PN ---
Subjective Progress Note Date: 05/03/25 Principal diagnosis: Reason for follow-up is perforated diverticulitis/abscess Patient is a 69-year-old male with a past medical history significant for hypertension hyperlipidemia did have a previous 2 episode of diverticulitis admitted to hospital with perforated diverticulitis and abscess status post CT- guided drainage. On today's evaluation that is 05/03/2025, Patient is afebrile this morning patient denies having any chest pain shortness of breath or cough, the patient is currently on room air, patient mention improvement abdominal pain no nausea vomiting or diarrhea. Patient white count 6.98 blood cultures are pending Objective - Vital Signs Vital signs: Vital Signs Temp 98.2 F 05/03/25 13:26 Pulse 66 05/03/25 13:26 Resp 18 05/03/25 13:26 BP 161/74 05/03/25 13:26 Pulse Ox 98 05/03/25 13:26 FiO2 Intake & Output 05/02/25 05/03/25 05/03/25 18:59 06:59 18:59 Intake Total 540 600 Output Total 40 Balance 540 -40 600 Intake: Oral 540 600 Output: Drainage 40 Left Abdomen 40 Other: Voiding Method Toilet Toilet Toilet # Voids 1 2 # Bowel Movements 1 - Exam GENERAL DESCRIPTION: An elderly male up in his chair in no distress RESPIRATORY SYSTEM: Unlabored breathing , decreased breath sounds at bases HEART: S1 S2 regular rate and rhythm , ABDOMEN: Soft , no tenderness EXTREMITIES: No edema feet - Labs CBC & Chem 7: 05/03/25 04:24 05/02/25 04:36 Labs: Abnormal Lab Results - Last 24 Hours (Table) 05/03/25 Range/Units 04:24 RBC 3.60 L (4.40-5.60) X 10*6/uL Hgb 12.0 L (13.0-17.0) g/dL Hct 34.2 L (39.6-50.0) % MCH 33.3 H (27.0-32.0) pg RDW 14.9 H (11.5-14.5) % Microbiology - Last 24 Hours (Table) 05/01/25 14:26 Blood Culture - Preliminary Blood Assessment and Plan (1) Diverticulitis of intestine with abscess Current Visit: Yes Status: Acute Code(s): K57.80 - DVTRCLI OF INTEST, PART UNSP, W PERF AND ABSCESS W/O BLEED SNOMED Code(s): 818418485 Plan: 1patient presented to hospital with abdominal pain and this patient has been diagnosed with a complicated diverticulitis with a peridiverticular abscess we will need to cover for the enteric gram-negative both aerobes and anaerobes status post IR drainage unfortunately no culture has been done 2-fluid obtained yesterday has been sent for aerobic and anaerobic culture this morning per discussion with the patient nurse 4-patient will be treated with the Zosyn 3.375 g every 8 hours while waiting for the culture to finalize Question concern answered Dictation was produced using [employer] dictation software. please excuse any grammatical, word or spelling errors. Time with Patient: Less than 30
--- NOTE | 2025-05-04 12:28 | P.PN ---
Subjective Progress Note Date: 05/04/25 SURGICAL PROGRESS NOTE CHIEF COMPLAINT: Diverticulitis with abscess HISTORY OF PRESENT ILLNESS: Patient reports no abdominal pain. Just some discomfort where the drain is placed. He is having flatus. No bowel movement. He would like diet advanced. Afebrile. ALONDRA drain with 15 mL bloody purulent output. PHYSICAL EXAM: VITAL SIGNS: Reviewed. GENERAL: Well-developed in no acute distress. ABDOMEN: Soft. Nondistended. Mild tenderness at drain site. Dark purulent bloody output noted in drain NEUROLOGIC: Alert and oriented. Cranial nerves II through XII grossly intact. ASSESSMENT: 1. Diverticulitis with pelvic abscess status post drain placement by IR service PLAN: -Continue IR drain. Patient will be discharged with the IR drain. -Continue antibiotics per ID service -Advance diet to low fiberlow fiber -Patient will need colonoscopy in 6 to 8 weeks and discussion about possible e lective sigmoidectomy -Patient can be discharged from surgical standpoint when cleared by ID service Physician Pleater note has been reviewed by physician. Signing provider agrees with the documented findings, assessment, and plan of care. Objective - Vital Signs Vital signs: Vital Signs Temp 98.4 F 05/04/25 07:49 Pulse 67 05/04/25 09:30 Resp 19 05/04/25 09:30 BP 151/78 05/04/25 07:49 Pulse Ox 97 05/04/25 07:49 FiO2 Intake & Output 05/03/25 05/04/25 05/04/25 18:59 06:59 18:59 Intake Total 600 600 Output Total 20 15 Balance 580 585 Intake: Oral 600 Other 600 Output: Drainage 20 15 Left Abdomen 20 15 Other: Voiding Method Toilet Toilet Toilet # Voids 2 1 - Labs CBC & Chem 7: 05/03/25 04:24 05/02/25 04:36 Labs: Microbiology - Last 24 Hours (Table) 05/02/25 14:30 Gram Stain - Preliminary Other - Other Body Fluid Culture - Preliminary Streptococcus constellatus Escherichia coli Citrobacter freundii complex 05/01/25 14:26 Blood Culture - Preliminary Blood
--- NOTE | 2025-05-04 16:52 | PN ---
PROGRESS NOTE SUBJECTIVE: The patient is seeing Dr. Yost for abscess of the diverticulum of left lower quadrant. He is on broad-spectrum antibiotics, status post needle aspiration. He has had a drainage on room air. OBJECTIVE: VITAL SIGNS: Stable. Afebrile. CARDIOVASCULAR: S1, S2. LUNGS: Clear. GI: Soft. HEMATOLOGY: Negative Homans. PSYCH: Fair mood and affect. ASSESSMENT AND PLAN: Diverticulitis with intestinal abscess, enteric gram-negative aerobes and anaerobes. No culture had been done. IV Zosyn every 8 hours. Wait for cultures. Prognosis is guarded. MMODL / IJN: [id number] /
--- NOTE | 2025-05-05 01:23 | PN ---
PROGRESS NOTE SUBJECTIVE: Apparently, he has a drainage tube in from abscess being drained. He remains on piperacillin/tazobactam every 8 hours IV until final cultures are back from the abscess pouch. OBJECTIVE: VITAL SIGNS: Blood pressure , O2 of 98% on room air, pulse 60s, respiratory rate 16 to 18, and temp 98.2. PLAN: Continue current treatment. Await for final cultures to come back and then possibly discharge home IV or p.o. depending on the susceptibility of the culture, which is positive for Citrobacter, E coli, or Strep. MMODL / IJN: [id number] /
--- NOTE | 2025-05-05 10:13 | P.PN ---
Subjective Progress Note Date: 05/05/25 SURGICAL PROGRESS NOTE CHIEF COMPLAINT: Diverticulitis with abscess HISTORY OF PRESENT ILLNESS: Patient reports some left lower quadrant discomfort. He felt that the discomfort was related to gas pains. He did have loose stools. He denies any nausea or vomiting. Afebrile. Drain with 30 mL serosanguineous output. Drainage is starting to be more clear. PHYSICAL EXAM: VITAL SIGNS: Reviewed. GENERAL: Well-developed in no acute distress. ABDOMEN: Soft. Nondistended. Mild tenderness at drain site. NEUROLOGIC: Alert and oriented. Cranial nerves II through XII grossly intact. ASSESSMENT: 1. Diverticulitis with pelvic abscess status post drain placement by IR service PLAN: -Patient will be discharged with the IR drain. -Continue antibiotics per ID service -Continue low fiber diet -Patient will need colonoscopy in 6 to 8 weeks and discussion about possible elective sigmoidectomy -Patient can be discharged from surgical standpoint when cleared by ID service Physician Outdoor Adventure Leader note has been reviewed by physician. Signing provider agrees with the documented findings, assessment, and plan of care. Attestation Patient seen and examined at bedside on 05/05/2025. Presented with chief complaint of diverticulitis with abscess. Status post IR drainage. Appears to be improving. Antibiotics per ID service. I did discuss the case in depth with the patient with need for colonoscopy in 6 to 8 weeks with possibility of elective sigmoidectomy. All questions were answered at bedside. eLticia Antoine, Objective - Vital Signs Vital signs: Vital Signs Temp 98 F 05/05/25 07:03 Pulse 63 05/05/25 07:03 Resp 20 05/05/25 07:03 BP 157/78 05/05/25 07:03 Pulse Ox 95 05/05/25 07:03 FiO2 Intake & Output 05/04/25 05/05/25 05/05/25 18:59 06:59 18:59 Intake Total 240 118 Output Total 15 30 Balance 225 -30 118 Intake: Oral 240 118 Output: Drainage 15 30 Left Abdomen 15 30 Other: Voiding Method Toilet Toilet # Voids 1 - Labs CBC & Chem 7: 05/05/25 06:24 05/05/25 06:24 Labs: Microbiology - Last 24 Hours (Table) 05/02/25 14:30 Gram Stain - Preliminary Other - Other Body Fluid Culture - Preliminary Streptococcus constellatus Escherichia coli Citrobacter freundii complex 05/01/25 14:26 Blood Culture - Preliminary Blood
[2025-05-05 10:30] LABS: ALT 12 U/L (10-49); AST 14 U/L (14-35); Albumin 3.3 g/dL (3.8-4.9); Albumin/Globulin Ratio 1.27 Ratio (1.60-3.17); Alkaline Phosphatase 63 U/L (41-126); Anion Gap 9.50 mmol/L (4.00-12.00); BUN/Creat Ratio 7.78 Ratio (12.00-20.00); Blood Urea Nitrogen 7.0 mg/dL (9.0-27.0); Calcium 8.8 mg/dL (8.7-10.3); Carbon Dioxide 24.5 mmol/L (21.6-31.8); Chloride 104 mmol/L (96-109); Globulin 2.6 g/dL (1.6-3.3); Glucose 108 mg/dL (70-110); Potassium 4.3 mmol/L (3.5-5.5); Sodium 138 mmol/L (135-145); Total Protein 5.9 g/dL (6.2-8.2)
[2025-05-05 11:09] LABS: Basophils # (A) 0.04 X 10*3/uL (0.00-0.10); Basophils % (A) 0.8 %; Eosinophils # (A) 0.09 X 10*3/uL (0.04-0.35); Eosinophils % (A) 1.9 %; HCT 35.8 % (39.6-50.0); HGB 11.4 g/dL (13.0-17.0); Immature Grans, Automated 0.60 %; Lymphocytes # (A) 1.44 X 10*3/uL (0.90-5.00); Lymphocytes % (A) 29.9 %; MCH 30.9 pg (27.0-32.0); MCHC 31.8 g/dL (32.0-37.0); MCV 97.0 FL (80.0-97.0); Monocytes # (A) 0.51 X 10*3/uL (0.20-1.00); Monocytes % (A) 10.6 %; NRBC Per 100 WBC 0 X 10*3/uL (0.00-0.01); Neutrophils # (A) 2.71 X 10*3/uL (1.80-7.70); Neutrophils % (A) 56.2 %; Platelet Count 365 X 10*3/uL (140-440); RBC 3.69 X 10*6/uL (4.40-5.60); RDW 15.0 % (11.5-14.5); WBC 4.82 X 10*3/uL (4.50-10.00)
[2025-05-05 11:19] VITALS: BMI 35.1
--- NOTE | 2025-05-05 13:39 | P.PN ---
Subjective Progress Note Date: 05/04/25 Principal diagnosis: Reason for follow-up is perforated diverticulitis/abscess Patient is a 69-year-old male with a past medical history significant for hypertension hyperlipidemia did have a previous 2 episode of diverticulitis admitted to hospital with perforated diverticulitis and abscess status post CT- guided drainage. On today's evaluation that is 05/04/2025,the patient denies any fever or any chills, patient is breathing comfortably on room air, the patient denies chest pain shortness of breath and no significant cough, patient denies nausea vomiting or diarrhea and abdominal pain has decreased intensity still have output in the drainage catheter. No new lab has been obtained today cultures currently growing Citrobacter sensitivity pending Objective - Vital Signs Vital signs: Vital Signs Temp 98.4 F 05/04/25 07:49 Pulse 67 05/04/25 09:30 Resp 19 05/04/25 09:30 BP 151/78 05/04/25 07:49 Pulse Ox 97 05/04/25 07:49 FiO2 Intake & Output 05/03/25 05/04/25 05/04/25 18:59 06:59 18:59 Intake Total 600 600 Output Total 20 15 Balance 580 585 Intake: Oral 600 Other 600 Output: Drainage 20 15 Left Abdomen 20 15 Other: Voiding Method Toilet Toilet Toilet # Voids 2 1 - Exam GENERAL DESCRIPTION: An elderly male up in his chair in no distress RESPIRATORY SYSTEM: Unlabored breathing , decreased breath sounds at bases HEART: S1 S2 regular rate and rhythm , ABDOMEN: Soft , no tenderness EXTREMITIES: No edema feet - Labs CBC & Chem 7: 05/05/25 06:24 05/05/25 06:24 Labs: Microbiology - Last 24 Hours (Table) 05/02/25 14:30 Gram Stain - Preliminary Other - Other Body Fluid Culture - Preliminary Streptococcus constellatus Escherichia coli Citrobacter freundii complex 05/01/25 14:26 Blood Culture - Preliminary Blood Assessment and Plan (1) Diverticulitis of intestine with abscess Current Visit: Yes Status: Acute Code(s): K57.80 - DVTRCLI OF INTEST, PART UNSP, W PERF AND ABSCESS W/O BLEED SNOMED Code(s): 615187070 Plan: 1patient presented to hospital with abdominal pain and this patient has been diagnosed with a complicated diverticulitis with a peridiverticular abscess we will need to cover for the enteric gram-negative both aerobes and anaerobes status post IR drainage unfortunately no culture has been done 2-fluid obtained from the drainage procedure culture currently growing Citrobacter E. coli with sensitivities pending 3-patient will be treated with the Zosyn 3.375 g every 8 hours while waiting for the culture to finalize determine discharge antibiotics Dictation was produced using [employer] dictation software. please excuse any grammatical, word or spelling errors. Time with Patient: Less than 30
--- NOTE | 2025-05-05 13:40 | P.PN ---
Subjective Progress Note Date: 05/05/25 Principal diagnosis: Reason for follow-up is perforated diverticulitis/abscess Patient is a 69-year-old male with a past medical history significant for hypertension hyperlipidemia did have a previous 2 episode of diverticulitis admitted to hospital with perforated diverticulitis and abscess status post CT- guided drainage. On today's evaluation that is 05/05/2025,the patient remains to be afebrile, patient is on room air not requiring supplemental oxygen and mentioned breathing comfortably with no chest pain or cough.Patient denies having any nausea or vomiting, no abdominal pain and no diarrhea has been reported. Patient white count is 4.82, creatinine 0.9 culture growing bacteroids Citrobacter E. coli only oral option reported is Bactrim DS by the micro lab Objective - Vital Signs Vital signs: Vital Signs Temp 98 F 05/05/25 07:03 Pulse 63 05/05/25 07:03 Resp 20 05/05/25 07:03 BP 157/78 05/05/25 07:03 Pulse Ox 95 05/05/25 07:03 FiO2 Intake & Output 05/04/25 05/05/25 05/05/25 18:59 06:59 18:59 Intake Total 240 118 Output Total 15 30 Balance 225 -30 118 Weight 107.955 kg Intake: Oral 240 118 Output: Drainage 15 30 Left Abdomen 15 30 Other: Voiding Method Toilet Toilet Toilet # Voids 1 - Exam GENERAL DESCRIPTION: An elderly male up in his chair in no distress RESPIRATORY SYSTEM: Unlabored breathing , decreased breath sounds at bases HEART: S1 S2 regular rate and rhythm , ABDOMEN: Soft , no tenderness EXTREMITIES: No edema feet - Labs CBC & Chem 7: 05/05/25 06:24 05/05/25 06:24 Labs: Abnormal Lab Results - Last 24 Hours (Table) 05/05/25 05/05/25 Range/Units 06:24 06:24 RBC 3.69 L (4.40-5.60) X 10*6/uL Hgb 11.4 L (13.0-17.0) g/dL Hct 35.8 L (39.6-50.0) % MCHC 31.8 L (32.0-37.0) g/dL RDW 15.0 H (11.5-14.5) % MPV 8.8 L (9.5-12.2) FL BUN 7.0 L (9.0-27.0) mg/dL BUN/Creatinine Ratio 7.78 L (12.00-20.00) Ratio Total Protein 5.9 L (6.2-8.2) g/dL Albumin 3.3 L (3.8-4.9) g/dL Albumin/Globulin Ratio 1.27 L (1.60-3.17) Ratio Microbiology - Last 24 Hours (Table) 05/02/25 14:30 Gram Stain - Preliminary Other - Other Body Fluid Culture - Preliminary Streptococcus constellatus Escherichia coli Citrobacter freundii complex 05/01/25 14:26 Blood Culture - Preliminary Blood Assessment and Plan (1) Diverticulitis of intestine with abscess Current Visit: Yes Status: Acute Code(s): K57.80 - DVTRCLI OF INTEST, PART UNSP, W PERF AND ABSCESS W/O BLEED SNOMED Code(s): 018538521 Plan: 1patient presented to hospital with abdominal pain and this patient has been diagnosed with a complicated diverticulitis with a peridiverticular abscess we will need to cover for the enteric gram-negative both aerobes and anaerobes status post IR drainage unfortunately no culture has been done 2-fluid obtained from the drainage procedure culture currently growing Citrobacter E. coli with only reported sensitivity to oral antibiotic is Bactrim DS by the micro lab 3-keeping in mind the patient did have extensive infection Bactrim DS may not be enough we will recommend a 10-day course of IV Zosyn as well as repeat CAT scan in 10 days before completion of his antibiotic to make sure resolution of the abscess before discontinuation of antibiotics prescription has been provided to the case filler midline has been ordered Dictation was produced using [employer] software. please excuse any grammatical, word or spelling errors. Time with Patient: Less than 30
[2025-05-06 07:31] VITALS: PULSE 66
[2025-05-06] MEDS: ERGOCALCIFEROL 1,250 MCG (50,000 IU) CAPSULE PO SCH (08:49)
[2025-05-06 13:28] VITALS: BP 146/76; RESP 20; TEMP 97.6
--- NOTE | 2025-05-06 16:26 | P.PN ---
Subjective Progress Note Date: 05/06/25 Principal diagnosis: Reason for follow-up is perforated diverticulitis/abscess Patient is a 69-year-old male with a past medical history significant for hypertension hyperlipidemia did have a previous 2 episode of diverticulitis admitted to hospital with perforated diverticulitis and abscess status post CT- guided drainage. On today's evaluation that is 05/06/2025, the patient continues to be afebrile, the patient is on room air and breathing comfortably, the Pt denies having any chest pain or cough, the patient denies having any abdominal pain no vomiting or any diarrhea still having output in his drainage catheter. No new lab has been obtained today Objective - Vital Signs Vital signs: Vital Signs Temp 98.1 F 05/06/25 07:30 Pulse 66 05/06/25 07:30 Resp 18 05/06/25 07:30 BP 150/77 05/06/25 07:30 Pulse Ox 96 05/06/25 07:30 FiO2 Intake & Output 05/05/25 05/06/25 05/06/25 18:59 06:59 18:59 Intake Total 231 300 Output Total 25 Balance 231 275 Weight 107.955 kg Intake: Oral 231 300 Output: Drainage 25 Left Abdomen 25 Other: Voiding Method Toilet # Voids 1 - Exam GENERAL DESCRIPTION: An elderly male up in his chair in no distress RESPIRATORY SYSTEM: Unlabored breathing , decreased breath sounds at bases HEART: S1 S2 regular rate and rhythm , ABDOMEN: Soft , no tenderness EXTREMITIES: No edema feet - Labs CBC & Chem 7: 05/05/25 06:24 05/05/25 06:24 Labs: Microbiology - Last 24 Hours (Table) 05/02/25 14:30 Gram Stain - Preliminary Other - Other Body Fluid Culture - Preliminary Streptococcus constellatus Escherichia coli Citrobacter freundii complex Enterococcus faecalis 05/02/25 22:38 Anaerobic Culture - Preliminary Abdominal Fluid Bacteroides fragilis Group Bacteroides ovatus Assessment and Plan (1) Diverticulitis of intestine with abscess Current Visit: Yes Status: Acute Code(s): K57.80 - DVTRCLI OF INTEST, PART UNSP, W PERF AND ABSCESS W/O BLEED SNOMED Code(s): 033076193 Plan: 1patient presented to hospital with abdominal pain and this patient has been diagnosed with a complicated diverticulitis with a peridiverticular abscess we will need to cover for the enteric gram-negative both aerobes and anaerobes status post IR drainage unfortunately no culture has been done 2-fluid obtained from the drainage procedure culture currently growing Citrobacter E. coli with only reported sensitivity to oral antibiotic is Bactrim DS by the micro lab 3-patient is currently waiting for outpatient antibiotic arrangement possible starting tomorrow will give him a dose of Rocephin on discharge but continue with Zosyn in the outpatient setting x [address] before discontinuation of antibiotics multiple question answered Dictation was produced using [employer] dictation software. please excuse any grammatical, word or spelling errors. Time with Patient: Less than 30
--- NOTE | 2025-05-16 02:32 | DS ---
DISCHARGE SUMMARY MEDICATIONS: 1. Actos 15 mg daily. 2. Isosorbide 300 mg daily. 3. Zocor 20 daily. 4. Celebrex 200 b.i.d. 5. Ozempic 1 mg weekly. 6. mg daily. 7. Zosyn IV piggyback q.8 hours. CONDITION: Stable. PROGNOSIS: Guarded. HOSPITAL COURSE: The patient had placed. He had a diverticular abscess in the left lower quadrant for which a drain was put in with pus taken out. Cultures were done. The patient went home on IV antibiotics, to follow up as an outpatient in 10-12 days. Please see further orders. MMODL / IJN: [id number] /
== END 2025-05-06 16:19 | disposition home or self-care (01) | DRG 391 ==
LOC: EC 10:50 → 5NMEDONC 16:39
PROVIDERS: ADMIT Family Medicine; ATTEND Family Medicine
PROC: 0W9G30Z Drainage of Peritoneal Cavity with Drainage Device, Percutaneous Approach (ICD-10-PCS; principal; 2025-05-02)
PROC: 05HC33Z Insertion of Infusion Device into Left Basilic Vein, Percutaneous Approach (ICD-10-PCS; 2025-05-05 15:45)
PROC: 05H933Z Insertion of Infusion Device into Right Brachial Vein, Percutaneous Approach (ICD-10-PCS; 2025-05-06)
DX: K57.20 Diverticulitis of large intestine with perforation and abscess without bleeding (principal); K65.1 Peritoneal abscess; B96.29 Other Escherichia coli [E. coli] as the cause of diseases classified elsewhere; B96.6 Bacteroides fragilis [B. fragilis] as the cause of diseases classified elsewhere; B96.89 Other specified bacterial agents as the cause of diseases classified elsewhere; Z79.1 Long term (current) use of non-steroidal anti-inflammatories (NSAID); Z79.84 Long term (current) use of oral hypoglycemic drugs; Z79.899 Other long term (current) drug therapy; Z79.85 Long-term (current) use of injectable non-insulin antidiabetic drugs; Z96.653 Presence of artificial knee joint, bilateral
CPT/HCPCS: 36410; 36415; 74177; 75989; 76937; 80053; 81001; 82150; 83605; 83690; 85025; 85610; 87040; 87070; 87075; 87077; 87186; 87205; 88305; 96361; 96365; 96368; 99285